=== PATIENT | female | born 1975 | race Caucasian/White ===

== ENCOUNTER 2020-09-14 09:36 | Outpatient (CLI) | payer OTHER, SELFPAY ==
[2020-09-14 10:11] LABS: Basophils Absolute Auto 0.1 K/mm3 (0.0-0.1); Eosinophils Absolute Auto 0.1 K/mm3 (0-0.3); Eosinophils Percent Auto 1.2 % (0-4.4); Hematocrit 46.2 % (37.0-47.0); Hemoglobin 15.3 g/dL (12.0-15.0); Immature Granulocyte Absolute 0.01 K/mm3 (0.00-0.031); Immature Granulocyte Percent A 0.2 % (0-0.5); Lymphocytes Absolute Auto 0.91 K/mm3 (0.9-3.2); Lymphocytes Percent Auto 18.3 % (18.3-44.2); Mean Corpuscular HGB Conc 33.1 g/dl (32-36); Mean Corpuscular Hemoglobin 29.8 pg (26-34); Mean Corpuscular Volume 90.1 fl (80-100); Mean Platelet Volume 10.7 fl (7.4-10.4); Monocytes Absolute Auto 0.5 K/mm3 (0.1-0.6); Monocytes Percent Auto 9.5 % (2.6-8.5); Neutrophils Absolute Auto 3.5 K/mm3 (1.3-6.7); Neutrophils Percent Auto 69.8 % (45.5-73.1); Platelet Count Result 236 k/mm3 (150-375); Red Blood Count 5.13 M/mm3 (4.2-5.4); Red Cell Distribution Width 13.6 % (11.5-14.5)
[2020-09-14 10:24] LABS: Alanine Aminotransferase 23 U/L (4-35); Albumin Level 4.2 g/dL (3.5-5.1); Alkaline Phosphatase 49 U/L (38-126); Anion Gap 5 mmol/L (8-16); Aspartate Amino Transferase 21 U/L (14-36); Bilirubin,Total 0.6 mg/dL (0.2-1.3); Blood Urea Nitrogen 15 mg/dL (7-17); Calcium 9.4 mg/dL (8.4-10.2); Carbon Dioxide 28 mmol/L (22-30); Chloride 109 mmol/L (98-107); Cholesterol 178 mg/dL (0-200); Estimated Glomerular Filt Rate 60; Glucose 94 mg/dL (65-105); HDL Direct 30 mg/dL; Potassium 4.4 mmol/L (3.4-5.0); Sodium 142 mmol/L (137-145); Triglycerides 139 mg/dL (<150)
[2020-09-14 10:37] LABS: LDL Cholesterol Direct 113 mg/dL
[2020-09-14 11:12] LABS: Vitamin D 25 Hydroxy 51.6 ng/mL
[2020-09-14 11:30] LABS: Folic Acid 15.4 ng/mL (2.76->20)
== END 2020-09-14 09:37 | disposition home or self-care (01) ==
LOC: ANHLAB 09:39
PROVIDERS: PCP Nurse Practitioner Family; Visit Provider Nurse Practitioner Family
DX: Z00.00 Encounter for general adult medical examination without abnormal findings (principal); E55.9 Vitamin D deficiency, unspecified
CPT/HCPCS: 36415; 80053; 80061; 82306; 82607; 82746; 84443; 85025

== ENCOUNTER 2020-10-23 11:08 | Emergency (ER) | payer OTHER, SELFPAY ==
--- NOTE | ~2020-10-23 | XR_ITS ---
EXAMINATION: XR chest 1V portable EXAM DATE: 10/23/2020 11:52 INDICATION: Heart palpitations. Hypertension. TECHNIQUE: Portable AP frontal chest x-ray was obtained. There is no prior study for comparison. FINDINGS: The lungs are clear. There are no pleural effusions. The cardiomediastinal silhouette is within normal limits. There is no pneumothorax suspected. The bones and soft tissues are unremarkab le. There are cholecystectomy clips. IMPRESSION: No acute cardiopulmonary findings. Reviewed, dictated and finalized at location A.
--- NOTE | 2020-10-23 11:10 | ECG_ITS ---
Measurements Intervals [place] Rate: 77 P: 52 WI: 157 QRS: 51 QRSD: 82 T: 43 QT: 354 QTc: 401 Interpretive Statements SINUS RHYTHM BASELINE ARTIFACT- I, II, AVR, AVL, V3 NORMAL ECG Electronically Signed On 10-23-2020 14:29:07 CDT by Arnel Rivera D.O.
[2020-10-23 11:21] VITALS: BP 137/80; PULSE 75; RESP 18; TEMP 36.8; O2SAT 98
[2020-10-23 11:37] LABS: Basophils Percent Auto 0.7 % (0.2-1.2); Eosinophils Absolute Auto 0.1 K/mm3 (0-0.3); Eosinophils Percent Auto 0.9 % (0-4.4); Hemoglobin 15.3 g/dL (12.0-15.0); Immature Granulocyte Absolute 0.01 K/mm3 (0.00-0.031); Immature Granulocyte Percent A 0.2 % (0-0.5); Lymphocytes Absolute Auto 2.05 K/mm3 (0.9-3.2); Lymphocytes Percent Auto 35.2 % (18.3-44.2); Mean Corpuscular HGB Conc 33.3 g/dl (32-36); Mean Corpuscular Hemoglobin 29.8 pg (26-34); Mean Corpuscular Volume 89.5 fl (80-100); Mean Platelet Volume 10.8 fl (7.4-10.4); Monocytes Absolute Auto 0.4 K/mm3 (0.1-0.6); Monocytes Percent Auto 6.9 % (2.6-8.5); Neutrophils Absolute Auto 3.3 K/mm3 (1.3-6.7); Neutrophils Percent Auto 56.1 % (45.5-73.1); Platelet Count Result 269 k/mm3 (150-375); Red Blood Count 5.14 M/mm3 (4.2-5.4); Red Cell Distribution Width 13.4 % (11.5-14.5); White Blood Count 5.8 K/mm3 (4.5-10.0)
[2020-10-23 11:48] LABS: Alanine Aminotransferase 21 U/L (4-35); Albumin Level 4.3 g/dL (3.5-5.1); Alkaline Phosphatase 54 U/L (38-126); Anion Gap 9 mmol/L (8-16); Aspartate Amino Transferase 24 U/L (14-36); Bilirubin,Total 0.6 mg/dL (0.2-1.3); Blood Urea Nitrogen 13 mg/dL (7-17); Calcium 9.7 mg/dL (8.4-10.2); Carbon Dioxide 24 mmol/L (22-30); Chloride 107 mmol/L (98-107); Estimated Glomerular Filt Rate 60; Glucose 102 mg/dL (65-105); Potassium 4.1 mmol/L (3.4-5.0); Sodium 140 mmol/L (137-145)
[2020-10-23 12:00] LABS: Troponin I < 0.012 ng/mL (0.000-0.034)
[2020-10-23 12:18] LABS: Barbiturate Screen Urine Negative (Negative); Benzodiazepines Screen Urine Negative (Negative)
[2020-10-23 12:19] LABS: Cannabinoid Screen Urine Positive (Negative); Cocaine Screen Urine Negative (Negative); Methadone Screen Urine Negative (Negative); Opiate Screen Urine Negative (Negative); Phencyclidine Screen Urine Negative (Negative)
[2020-10-23 12:48] LABS: Amphetamine Screen Urine Negative (Negative)
--- NOTE | 2020-10-23 12:52 | ED.ARRPALP ---
HPI - Arrhythmia/Palpitations General Chief Complaint: Arrhythmia/Palpitations Stated Complaint: palpations Time Seen by Provider: 10/23/20 11:21 Source: patient, family and RN notes reviewed Mode of arrival: ambulatory Limitations: no limitations History of Present Illness HPI narrative: Patient is 45 years old white female presents to the ED with feeling her heart is fluttering lasted for about 20 minutes at work. Currently patient is asymptomatic. Patient denies any fever, chills, nausea, vomiting, chest pain, shortness of breath or back pain. Patient reported having similar symptoms years ago, negative Holter monitor. Patient reports a lot of stress lately. Patient does not smoke, drinks occasionally and uses marijuana occasionally. Related Data Home Medications Medication Instructions Recorded Confirmed multivitamin 1 tablet PO DAILY 09/09/20 Allergies Allergy/AdvReac Type Severity Reaction Status Date / Time codeine Allergy Unknown Unknown Verified 09/09/20 09:38 Review of Systems Review of Systems: Narrative: CONSTITUTIONAL: Denies fever, chills, or sweats. EYES: Denies visual changes, redness, or discharge. ENT: Denies rhinorrhea, congestion, sore throat, or otalgia. CARDIOVASCULAR: Denies chest pain, palpitations, or edema. RESPIRATORY: Denies cough or dyspnea. GASTROINTESTINAL: Denies abdominal pain, nausea, vomiting, or diarrhea. GENITOURINARY: Denies dysuria or hematuria. SKIN: Denies rash or itching. MUSCULOSKELETAL: Denies back pain, joint pain, or myalgia. NEUROLOGIC: Denies headache, numbness, or weakness. PSYCHIATRIC: Denies anxiety or depression. [facility] Past Medical History Medical History Anxiety BMI 31.0-31.9,adult Constipation Encounter for wellness examination Encounter to establish care Left hip pain Skin abnormality Vitamin D deficiency, unspecified Surgical History Surgical History History of appendectomy 2018 Hx of cholecystectomy 1994 S/P removal of right ovary 2001 Family History Family History Father Bone cancer Hypertension Heart disease Mother Brain aneurysm Sibling Hypertension Heart disease Cerebrovascular accident Grandparent Breast cancer Grandparent Heart disease Cerebrovascular accident Social History Social History Smoking status: Never smoker Alcohol intake: current Substance use: never Exam Narrative: Exam Narrative: General appearance: Well-developed, well-nourished Skin: Normal color Head: Normocephalic, nontraumatic Eyes: Clear conjunctiva ENT: Oropharynx normal, ears normal, nose normal Neck: Supple, nontender Chest and respiratory: Airway patent, no respiratory distress, no accessory muscle use Heart: Regular rate/rhythm Abdomen: Soft, nontender, no organomegaly, quiet bowel sounds Vascular: Normal peripheral pulses, normal capillary refill. 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
[2020-10-23 13:02] VITALS: BP 145/78; PULSE 72; RESP 18; O2SAT 100
== END 2020-10-23 13:03 | disposition home or self-care (01) ==
PROVIDERS: Emergency Provider Emergency Medicine; PCP Nurse Practitioner Family
DX: R00.2 Palpitations (principal); E55.9 Vitamin D deficiency, unspecified
CPT/HCPCS: 36415; 71045; 80053; 80307; 84443; 84484; 85025; 93005; 99284

== ENCOUNTER 2020-10-30 14:53 | Outpatient (CLI) | payer OTHER, SELFPAY ==
--- NOTE | ~2020-10-30 | US_ITS ---
EXAMINATION: US pelvic complete w TV DATE: 10/30/2020 15:21 INDICATION: Uterine fibroid. TECHNIQUE: Multiple transabdominal and transvaginal sonographic images of the pelvis were obtained. COMPARISON: None. FINDINGS: TRANSABDOMINAL ULTRASOUND: The uterus measures 9.8 x 6.0 x 5.6 cm. There is no free fluid in the pelvis. TRANSVAGINAL ULTRASOUND: The endometrial complex measures 12 mm in thickness. There is a 3.1 x 2.3 x 2.4 cm hyperechoic intram ural fibroid anteriorly. The right ovary is absent. The left ovary measures 1.6 x 1.2 x 1.8 cm. IMPRESSION: 1. 3.1 cm uterine fibroid. Reviewed, dictated and finalized at location A. IMPRESSION: 1. 3.1 cm uterine fibroid.
== END 2020-10-30 14:54 | disposition home or self-care (01) ==
PROVIDERS: PCP Nurse Practitioner Family; Visit Provider Nurse Practitioner Women's Health
DX: D25.9 Leiomyoma of uterus, unspecified (principal)
CPT/HCPCS: 76830; 76856

== ENCOUNTER 2020-11-02 07:33 | Outpatient (CLI) | payer OTHER, SELFPAY ==
--- NOTE | ~2020-11-02 | MM_ITS ---
EXAMINATION: MM screening bing BI w william HISTORY: Screening mammogram TECHNIQUE: Craniocaudal and mediolateral oblique 3-D tomosynthesis images were obtained and synthetic 2-D images were generated. CAD analysis was submitted and interpreted. COMPARISON: No prior mammogram is available for comparison at this institution. BREAST PARENCHYMAL COMPOSITION: There are scattered areas of fibroglandular density. FINDINGS: There is no evidence of suspicious mass, calcification, or architectural distortion to sugg est malignancy in either breast. IMPRESSION: 1. No mammographic evidence of malignancy. 2. Recommend routine screening mammography in one year. BI-RADS Category 1: Negative Reviewed, dictated and finalized at location A.
== END 2020-11-02 07:34 | disposition home or self-care (01) ==
LOC: ANHIMG 07:35
PROVIDERS: PCP Nurse Practitioner Family; Visit Provider Nurse Practitioner Women's Health
DX: Z12.31 Encounter for screening mammogram for malignant neoplasm of breast (principal)
CPT/HCPCS: 77063; 77067

== ENCOUNTER 2021-01-11 11:08 | Outpatient (CLI) | payer OTHER, SELFPAY ==
--- NOTE | ~2021-01-11 | XR_ITS ---
XR hip LT min 2V DATE: 01/11/2021 11:44 INDICATION: Left hip pain TECHNIQUE: AP and lateral views COMPARISON: None FINDINGS: Bilateral fallopian tubal inserts are noted. No fracture, dislocation, avascular necrosis or bone destruction of the left hip. Left hip joint spac e is well preserved. IMPRESSION: Negative left hip Reviewed, dictated and finalized at location A. IMPRESSION: Negative left hip
--- NOTE | ~2021-01-11 | XR_ITS ---
XR lumbar spine 2-3V DATE: 01/11/2021 11:44 INDICATION: Low back pain radiating down both legs TECHNIQUE: AP, lateral, coned lateral lumbosacral views COMPARISON: None FINDINGS: Incidentally noted are bilateral fallopian tubal inserts. Status post cholecystectomy. There is minimal levoscoliosis of the lumbar spine. No fracture or bone destruction is evident. The included lower thoracic and lumbar pedicles are intac t. No spondylolisthesis. There is mild degenerative spurring of the lower thoracic and lumbar spine. Lumbar levels interspaces are relatively well preserved. IMPRESSION: Mild degenerative change of the lumbar spine Reviewed, dictated and finalized at location A.
--- NOTE | ~2021-01-11 | XR_ITS ---
XR hip RT min 2V DATE: 01/11/2021 11:44 INDICATION: Right hip pain TECHNIQUE: AP and lateral views COMPARISON: None FINDINGS: Incidentally noted are bilateral fallopian tube inserts. No fracture or dislocation, avascular necrosis or bone destruction of the right hip. Right hip joint space appears well preserved. The pubic symphysis and included portions of the sacroiliac joints appe ar intact IMPRESSION: Negative right hip Reviewed, dictated and finalized at location A. IMPRESSION: Negative right hip
== END 2021-01-11 11:09 | disposition home or self-care (01) ==
LOC: ANHIMG 11:12
PROVIDERS: PCP Nurse Practitioner Family; Visit Provider Nurse Practitioner Family
DX: M54.5 Low back pain (principal); M25.552 Pain in left hip; M25.551 Pain in right hip
CPT/HCPCS: 72100; 73502

== ENCOUNTER 2021-11-29 15:04 | Outpatient (CLI) | payer OTHER, SELFPAY ==
--- NOTE | ~2021-11-29 | MM_ITS ---
EXAMINATION: MM screening bing BI w william HISTORY: Screening mammogram, family history of breast cancer in her mother. TECHNIQUE: Craniocaudal and mediolateral oblique 3-D tomosynthesis images were obtained and synthetic 2-D images were generated. CAD analysis was submitted and interpreted. COMPARISON: 11/02/2020 BREAST PARENCHYMAL COMPOSITION: There are scattered areas of fibroglandular density. FINDINGS: RIGHT BREAST: There is no suspicious mass, calcification, or architectural distortion to suggest khoa gnancy. There has been no significant interval change. LEFT BREAST: An asymmetry is present in the posterior third of the slightly outer breast 10 cm from t he nipple on the craniocaudal view. IMPRESSION: 1. Left breast asymmetry on the craniocaudal view 2. Additional mammographic views and possible breast ultrasound are recommended. BI-RADS Category 0: Incomplete: Needs additional imaging evaluation. Reviewed, dictated and finalized at location A. IMPRESSION: 1. Left breast asymmetry on the craniocaudal view 2. Additional mammographic views and possible breast ultrasound are recommended . BI-RADS Category 0: Incomplete: Needs additional imaging evaluation.
== END 2021-11-29 15:05 | disposition home or self-care (01) ==
LOC: ANHIMG 15:06
PROVIDERS: PCP Nurse Practitioner Family; Visit Provider Obstetrics & Gynecology
DX: Z12.31 Encounter for screening mammogram for malignant neoplasm of breast (principal); R92.8 Other abnormal and inconclusive findings on diagnostic imaging of breast
CPT/HCPCS: 77063; 77067

== ENCOUNTER 2021-12-13 12:56 | Outpatient (CLI) | payer OTHER, SELFPAY ==
--- NOTE | ~2021-12-13 | MM_ITS ---
EXAMINATION: MM diagnostic bing LT w william HISTORY: Left breast asymmetry reported on 11/29/2021 screening craniocaudal view TECHNIQUE: Additional 3-D tomosynthesis images of the left breast were performed and synthetic 2-D im ages were generated. CAD analysis was submitted and interpreted. COMPARISON: 11/29/2021 and 11/02/2020ilateral screening mammogram examinations FINDINGS: The area of asymmetry is not confirmed on coned craniocaudal compression view of the area o f interest in the posterior outer left breast. No abnormality is noted on orthogonal views. IMPRESSION: 1. No mammographic evidence of malignancy 2. Routine mammographic screening is recommended BI-RADS Category 1: Negative Reviewed, dictated and finalized at location A.
== END 2021-12-13 12:57 | disposition home or self-care (01) ==
LOC: ANHIMG 12:57
PROVIDERS: PCP Nurse Practitioner Family; Visit Provider Obstetrics & Gynecology
DX: R92.8 Other abnormal and inconclusive findings on diagnostic imaging of breast (principal)
CPT/HCPCS: 77061; 77065; G0279

== ENCOUNTER 2021-12-29 00:05 | Day surgery (SDC) | payer OTHER, SELFPAY ==
[2021-12-14 11:49] VITALS: BMI 28.8
[2021-12-29 06:25] VITALS: BP 118/68; PULSE 64; RESP 18; TEMP 36.4; O2SAT 100
[2021-12-29] MEDS: LACTATED RINGERS 1,000 ML 150 ML IV CONT (06:37)
--- NOTE | 2021-12-29 06:48 | WPDANESEPPF ---
Anes - Initial Pre Proc Eval Procedure: Operation Date: 12/29/21 07:30 Proposed Procedures p Screening Colonoscopy - Taz Urbano MD Date/Time: 12/29/21 06:48 Surgeon: Taz Urbano MD Pre Op Diagnosis: neoplasm screening Patient Data Age: 46 Gender: F Height: 1.63 m Weight: 80.1 kg Last Vital Signs Temp 36.4 C 12/29/21 06:25 Pulse 64 12/29/21 06:25 Resp 18 12/29/21 06:25 BP 118/68 12/29/21 06:25 Pulse Ox 100 12/29/21 06:25 O2 Del Method Room Air 12/29/21 06:25 Allergies Allergy/AdvReac Type Severity Reaction Status Date / Time codeine Allergy Unknown Unknown Verified 12/29/21 06:23 Home Medications Medication Instructions Recorded Confirmed Type multivitamin 1 tablet PO DAILY 09/09/20 12/14/21 History Patient hx anesthesia problems: none Family hx anesthesia problems: none Results Review: All pre-operative results and documents have been reviewed as part of the pre-operative evaluation. [facility] Past Medical History Medical History Anxiety BMI 29.0-29.9,adult BMI 30.0-30.9,adult BMI 31.0-31.9,adult Constipation Elevated blood pressure reading Encounter for wellness examination Encounter to establish care Fatigue Left hip pain Lumbago Right hip pain Seasonal allergic rhinitis Skin abnormality Vitamin D deficiency, unspecified Surgical History Surgical History History of appendectomy 2018 Hx of cholecystectomy 1994 S/P removal of right ovary 2001 Family History Family History Father Bone cancer Hypertension Heart disease Mother Brain aneurysm Sibling Hypertension Heart disease Cerebrovascular accident Grandparent Breast cancer Grandparent Heart disease Cerebrovascular accident Social History Social History Smoking status: Never smoker Alcohol intake: current Alcohol use details: rarely Substance use: current Substance use type: marijuana Other substance usage details: occasionally Living arrangements: with family Spiritual care concerns: No Anes - Eval Final PreProcedure Day of Procedure 12/29/21 06:48 Patient weight: overweight Heart: regular rate and rhythm Lungs: clear to auscultation Airway: Mallampati scale class II Neurological: alert and oriented Last oral intake: >/= 8 hours ASA classification: II Emergent: no Anesthetic plan: proceed Anesthesia type and monitoring: general GIVS and standard monitoring Results Review: All pre-operative results and documents have been reviewed as part of the pre-operative evaluation. Informed Consent: The patient's anesthetic plan and its attendant risks and benefits were discussed with the patient/family/POA. Questions were solicited and answers provided to the satisfaction of the patient/family/POA.
--- NOTE | 2021-12-29 07:30 | PM.HPGS ---
History of Present Illness History of Present Illness Consent: Risks, benefits, and alternatives have been discussed and questions answered. Patient agrees to proceed with procedure. Chief complaint: neoplasm screening Narrative: Madelyn Loaiza is a 46 year old female here for screening colonoscopy Review of Systems Constitutional: Constitutional: Denies headache(s) and Denies weakness Eyes: Eyes: Denies blurry vision ENT: Reports Normal hearing present, Denies headache(s) and Denies neck pain Cardiovascular: Cardiovascular: Denies chest pain and Denies dyspnea Respiratory: Respiratory: Denies dyspnea Gastrointestinal: Gastrointestinal: Reports no additional gastrointestinal complaints Genitourinary: Genitourinary: Denies dysuria Musculoskeletal: Musculoskeletal: Denies neck pain Integumentary/Breasts: Skin/Breast: Denies dry skin Neurologic: Reports Normal hearing present, Denies headache(s) and Denies weakness Psychiatric: Psychiatric: Denies anxiety Endocrine: Endocrine: Denies change in body appearance Hematologic/Lymphatic: Hematologic/Lymphatic: Denies easy bleeding Allergic/Immunologic: Allergic/Immunologic: Denies urticaria PMF Past Medical History Medical History (Updated 12/29/21 @ 07:30 by Taz Urbano MD) Anxiety BMI 29.0-29.9,adult BMI 30.0-30.9,adult BMI 31.0-31.9,adult Colon cancer screening Constipation Elevated blood pressure reading Encounter for wellness examination Encounter to establish care Fatigue Left hip pain Lumbago Right hip pain Seasonal allergic rhinitis Skin abnormality Vitamin D deficiency, unspecified Surgical History Surgical History History of appendectomy 2017 Hx of cholecystectomy 1994 S/P removal of right ovary 2001 Family History Family History Father Bone cancer Hypertension Heart disease Mother Brain aneurysm Sibling Hypertension Heart disease Cerebrovascular accident Grandparent Breast cancer Grandparent Heart disease Cerebrovascular accident Social History Social History Smoking status: Never smoker Alcohol intake: current Alcohol use details: rarely Substance use: current Substance use type: marijuana Other substance usage details: occasionally Living arrangements: with family Spiritual care concerns: No Meds Home Medications and Allergies Home Medications Medication Instructions Recorded Confirmed Type multivitamin 1 tablet PO DAILY 09/09/20 12/14/21 History Allergies Allergy/AdvReac Type Severity Reaction Status Date / Time codeine Allergy Unknown Unknown Verified 12/29/21 06:23 Vital Signs Vital Signs - 24 hr 12/29/21 06:25 Temperature 97.6 F Pulse Rate 64 Respiratory Rate 18 Blood Pressure 118/68 Pulse Oximetry 100 Oxygen Delivery Room Air Exam Const: General: comfortable and no acute distress HENMT: General nose exam: Normal nares present Eyes: General: appearance normal, both eyes and all related structures Neck: Neck: no JVD Resp: Auscultation: clear to auscultation bilaterally Cardio: Rate: regular rate Rhythm: regular rhythm GI: Inspection: non-distended GI Palp: Yes Soft to palpation Skin: General skin exam: normal color Neuro: General: gait normal Speech: normal speech Extrem: General: normal to inspection Psych: Mental Status: mental status grossly normal Assessment and Plan Assessment and plan (1) Colon cancer screening: Code(s): Z12.11 - Encounter for screening for malignant neoplasm of colon Status: Acute Assessment and Plan: colonoscopy
[2021-12-29 07:45] VITALS: BP 107/62; PULSE 72; RESP 27; O2SAT 100
[2021-12-29 07:55] VITALS: BP 109/62; PULSE 69; RESP 19; O2SAT 100
[2021-12-29 08:05] VITALS: BP 107/65; PULSE 61; RESP 15; O2SAT 100
== END 2021-12-29 08:11 | disposition home or self-care (01) ==
PROVIDERS: PCP Nurse Practitioner Family; Visit Provider Internal Medicine Gastroenterology
PROC: 0DJD8ZZ Inspection of Lower Intestinal Tract, Via Natural or Artificial Opening Endoscopic (ICD-10-PCS; CPT 45378; principal; 2021-12-29 07:30)
DX: Z12.11 Encounter for screening for malignant neoplasm of colon (principal); K57.30 Diverticulosis of large intestine without perforation or abscess without bleeding; K64.8 Other hemorrhoids; F41.9 Anxiety disorder, unspecified; R53.83 Other fatigue; K59.00 Constipation, unspecified; M54.50 Low back pain, unspecified; E55.9 Vitamin D deficiency, unspecified; F12.90 Cannabis use, unspecified, uncomplicated
CPT/HCPCS: 45378; J2001; J2704; J7120

== ENCOUNTER 2023-05-30 07:32 | Outpatient (CLI) | payer OTHER, SELFPAY ==
--- NOTE | ~2023-05-30 | MM_ITS ---
EXAMINATION: MM screening bing BI w william HISTORY: Screening mammogram, family history of breast cancer in her mother. TECHNIQUE: Craniocaudal and mediolateral oblique 3-D tomosynthesis images were obtained and synthetic 2-D images were generated. CAD analysis was submitted and interpreted. COMPARISON: 12/13/2021, 11/29/2021, 11/02/2020 BREAST PARENCHYMAL COMPOSITION: There are scattered areas of fibroglandular density. FINDINGS: No suspicious mass, calcification, or architectural distortion are identified in either tracey ast to suggest malignancy. There has been no suspicious interval change. IMPRESSION: 1. No mammographic evidence of malignancy. 2. Recommend routine screening mammography in one year. 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
== END 2023-05-30 07:33 | disposition home or self-care (01) ==
PROVIDERS: PCP Nurse Practitioner Family; Visit Provider Obstetrics & Gynecology
DX: Z12.11 Encounter for screening for malignant neoplasm of colon (principal)
CPT/HCPCS: 77063; 77067

== ENCOUNTER 2023-08-01 13:47 | Emergency (ER) | payer OTHER, SELFPAY ==
[2023-08-01 14:09] VITALS: BP 107/68; PULSE 72; RESP 18; TEMP 36.7; O2SAT 100
--- NOTE | 2023-08-01 15:03 | ED.URI ---
HPI - URI/Sore Throat General Chief Complaint: Upper Respiratory Infection Stated Complaint: Sinus Drainage and Cough Source: patient Mode of arrival: ambulatory Limitations: no limitations History of Present Illness HPI Narrative: 48-year-old female presented for complaint of persistent cough with nasal congestion and sinus pressure over the past week. Cough is productive of clear sputum. Taking DayQuil and NyQuil, Mucinex and Sudafed without relief. Denies shortness of breath, wheezing, nausea, vomiting, diarrhea, fevers or chills. Related Data Home Medications Medication Instructions Recorded Confirmed multivitamin 1 tablet PO DAILY 09/09/20 08/01/23 Allergies Allergy/AdvReac Type Severity Reaction Status Date / Time codeine Allergy Unknown Unknown Verified 08/01/23 14:21 Review of Systems Review of Systems: CONSTITUTIONAL: Denies body aches, fever, chills, or sweats. EYES: Denies visual changes, redness, or discharge. ENT: Reports rhinorrhea, congestion, denies sore throat, or otalgia. CARDIOVASCULAR: Denies chest pain, palpitations, or edema. RESPIRATORY: Reports cough,denies sob, wheezing. GASTROINTESTINAL: Denies abdominal pain, nausea, vomiting, or diarrhea. SKIN: Denies rash, itching, or wounds. NEUROLOGIC: Denies headache, numbness, tingling, or weakness. 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 Constipation Decreased exercise tolerance Elevated blood pressure reading Elevated red blood cell count Elevated serum creatinine Encounter for wellness examination Encounter to establish care Fatigue Hyperlipidemia Hypersomnia Left hip pain Lumbago Migraine headache without aura Nausea and vomiting Obesity (BMI 30.0-34.9) Right hip pain Seasonal allergic rhinitis Seasonal allergies Skin abnormality Snoring Vitamin D deficiency, unspecified Surgical History Surgical History History of appendectomy 2018 Hx of cholecystectomy 1994 S/P removal of right ovary 2002 Family History Family History Father Bone cancer Hypertension Heart disease Mother Brain aneurysm Sibling Hypertension Heart disease Cerebrovascular accident Grandparent Breast cancer Grandparent Heart disease Cerebrovascular accident Social History Social History Smoking status: Never smoker Alcohol intake: current Alcohol use details: rarely Substance use: current Substance use type: marijuana Other substance usage details: occasionally Living arrangements: with family Spiritual care concerns: No Comments At time of signature, I have reviewed and agree with nursing past medical, surgical, social and family history unless otherwise noted. Please see nursing chart for further information. There is no relevant family history pertinent to the presenting complaint Exam Narrative: GENERAL: Well-appearing, in no acute distress. EYES: EOMI. No redness or drainage. Conjunctivae normal. ENT: Mucous membranes pink and moist. Mild rhinorrhea and congestion. TMs with scarring and left clear effusion. Throat normal. Uvula midline. NECK: Normal AROM. Supple. CHEST: No respiratory distress. Lungs clear to all liang. Frequent moist nonproductive cough HEART: Regular rate and rhythm. No murmur appreciated. SKIN: Warm, dry, no rash. Capillary refill normal. Normal skin turgor. NEURO: Alert and oriented x3. Gait steady. Course Course Emergency Course: Patient
== END 2023-08-01 15:10 | disposition home or self-care (01) ==
PROVIDERS: Emergency Provider Nurse Practitioner Family; PCP Nurse Practitioner Family
DX: J40 Bronchitis, not specified as acute or chronic (principal); Z20.822 Contact with and (suspected) exposure to COVID-19; F12.90 Cannabis use, unspecified, uncomplicated; E78.5 Hyperlipidemia, unspecified
CPT/HCPCS: 87426; 99213; G0463

== ENCOUNTER 2023-09-06 10:26 | Outpatient (CLI) | payer OTHER, SELFPAY ==
--- NOTE | 2023-09-06 10:45 | EST_ITS ---
Patient Info Name: Madelyn Loaiza Age: 48 years : 1975 Gender: Female Ht: 64 in Wt: 170 lbs BSA: 1.89 m2 HR: 67 bpm BP: 109 / 73 mmHg Heart Rhythm: Sinus Rhythm Exam Date: 09/06/2023 10:56 AM Exam Location: [facility] Patient Status: Outpatient Admit Date: 09/06/2023 Staff Ordering Physician: Jeniffer Cummings NP Attending Provider: Jeniffer Cummings NP Exercise Technologist: Taina Handy CT Exercise Physician: Arnel Rivera DO Exam Type: CA stress test treadmill Study Info Indications - decreased exercise tolerance A treadmill exercise stress test was performed. Summary 1. 1. Negative Randall exercise stress test for ischemic ST changes by ECG criteria. 2. 2. Good functional capacity, achieving 10 METs of workload. 3. 3. Appropriate HR response to exercise. 4. 4. Appropriate HR recovery at 1 minute post exercise. 5. 5. No imaging with stress testing. 6. 6. Patient informed of the above results. Protocol: Randall Stress ECG Details Stage: REST Duration (min): 1 min : 47 sec Speed (mph): 0.0 Grade (%): 0 HR (bpm): 67 SBP (mmHg): 109 DBP (mmHg): 73 METS: --- Stage: REST Duration (min): 8 min : 38 sec Speed (mph): 0.0 Grade (%): 0 HR (bpm): 77 SBP (mmHg): 109 DBP (mmHg): 73 METS: --- Stage: STAGE 1 Duration (min): 1 min : 0 sec Speed (mph): 1.7 Grade (%): 10 HR (bpm): 86 SBP (mmHg): 109 DBP (mmHg): 73 METS: --- Stage: STAGE 1 Duration (min): 2 min : 0 sec Speed (mph): 1.7 Grade (%): 10 HR (bpm): 100 SBP (mmHg): 109 DBP (mmHg): 73 METS: --- Stage: STAGE 1 Duration (min): 3 min : 0 sec Speed (mph): 1.7 Grade (%): 10 HR (bpm): 103 SBP (mmHg): 152 DBP (mmHg): 52 METS: --- Stage: STAGE 2 Duration (min): 1 min : 0 sec Speed (mph): 2.5 Grade (%): 12 HR (bpm): 109 SBP (mmHg): 152 DBP (mmHg): 52 METS: --- Stage: STAGE 2 Duration (min): 2 min : 0 sec Speed (mph): 2.5 Grade (%): 12 HR (bpm): 119 SBP (mmHg): 147 DBP (mmHg): 59 METS: --- Stage: STAGE 2 Duration (min): 3 min : 0 sec Speed (mph): 2.5 Grade (%): 12 HR (bpm): 124 SBP (mmHg): 147 DBP (mmHg): 59 METS: --- Stage: STAGE 3 Duration (min): 1 min : 0 sec Speed (mph): 3.4 Grade (%): 14 HR (bpm): 143 SBP (mmHg): 147 DBP (mmHg): 59 METS: --- Stage: STAGE 3 Duration (min): 2 min : 0 sec Speed (mph): 3.4 Grade (%): 14 HR (bpm): 150 SBP (mmHg): 147 DBP (mmHg): 59 METS: --- Stage: STAGE 3 Duration (min): 3 min : 0 sec Speed (mph): 3.4 Grade (%): 14 HR (bpm): 155 SBP (mmHg): 176 DBP (mmHg): 66 METS: --- Stage: RECOVERY Duration (min): 0 min : 59 sec Speed (mph): 0.0 Grade (%): 0 HR (bpm): 120 SBP (mmHg): 176 DBP (mmHg): 66 METS: --- Stage: RECOVERY Duration (min): 1 min : 59 sec Speed (mph): 0.0 Grade (%): 0 HR (bpm): 97 SBP (mmHg): 176 DBP (mmHg): 6
== END 2023-09-06 10:27 | disposition home or self-care (01) ==
LOC: ANHCARD 10:26
PROVIDERS: PCP Nurse Practitioner Family; Visit Provider Nurse Practitioner Family
DX: R68.89 Other general symptoms and signs (principal)
CPT/HCPCS: 93017